=== PATIENT | female | born 1995 | race Caucasian/White ===

== ENCOUNTER → 2018-04-04 11:42 | Outpatient (CLI) | payer MEDICAID, SELFPAY ==
[2018-04-04 17:07] LABS: Chlamydia Trachomatis by PCR Negative (Negative); Neisserai gonorrhoeae by PCR Negative (Negative); Probe Check PASS; Sample Adequacy Control PASS; Specimen Processing Control PASS
[2018-04-07 11:08] LABS: HPV Reflexed? NOT INDICATED
== END ==
PROVIDERS: Visit Provider Obstetrics & Gynecology
DX: Z12.4 Encounter for screening for malignant neoplasm of cervix (principal)
CPT/HCPCS: 87491; 87591; 88175; G0145

== ENCOUNTER 2018-05-04 15:24 | Emergency (ER) | payer MEDICAID, SELFPAY ==
[2018-05-04 15:25] VITALS: BP 144/92; PULSE 109; RESP 17; TEMP 36.7; O2SAT 97; BMI 44.4
--- NOTE | 2018-05-04 15:53 | ED.DEP ---
ED Disposition - Plan for ED Patient: Chief Complaint: Rash Instructions: ED Folliculitis Prescriptions: Clindamycin [Cleocin] 300 mg PO 4X/DAY #80 capsule Referrals: Sujata Ignacio MD [Primary Care Provider] - Nayeli Baig MD [STAFF PHYSICIAN] -
--- NOTE | 2018-05-04 15:57 | ED.VISSUMM ---
- ER Visit Summary Date of Service: 05/04/18 Chief Complaint: Rash History of Present Illness: The patient is a 22 F presenting with rash in her pelvic region. She shaved before this started. She states this has been ongoing for the past 2 weeks. She states that it worsened today after using Segal cream. She has an itchy painful rash. She denies fever. LMP was 4 days ago. Denies possibility of STDs. Denies other complaints. She has an allergy to penicillin. Physical Examination: Vitals are stable. Patient is afebrile. Alert no acute distress. HEENT exam is unremarkable. Lungs are clear and equal bilaterally. Heart is regular rate and rhythm. Abdomen is soft nontender nondistended. : Follicular rash in pelvic area. No vesicles or ulcers. No areas of fluctuance. Extremities are unremarkable. Remainder of exam is unremarkable. Emergency Department Course and Treatment: Patient is given clindamycin. She is advised to follow up with her PHONE TRIAGE SPECIALIST. Advised return to ED for any worsening complaints. Disposition: Discharge home Impression: Folliculitis This note was generated with [employer] dictation software. It may contain incorrect words, spelling, and punctuation that were not noted in review of the chart prior to signing ED Disposition - Plan for ED Patient: Disposition: Home or Assisted Living Chief Complaint: Rash Instructions: ED Folliculitis Prescriptions: RX: Clindamycin [Cleocin] 300 mg PO 4X/DAY #80 capsule Referrals: Sujata Ignacio MD [Primary Care Provider] - Nayeli Baig MD [STAFF PHYSICIAN] -
[2018-05-04] MEDS: Clindamycin HCl 150 MG Capsule 300 MG PO (16:02)
[2018-05-04 16:13] VITALS: RESP 18
== END 2018-05-04 16:18 | disposition home or self-care (01) ==
PROVIDERS: Emergency Provider Emergency Medicine; Family Provider Family Medicine; PCP Family Medicine
DX: L73.9 Follicular disorder, unspecified (principal); Z72.0 Tobacco use
CPT/HCPCS: 99283

== ENCOUNTER 2018-07-01 00:04 | Emergency (ER) | payer MEDICAID, SELFPAY ==
[2018-07-01 00:04] VITALS: BP 168/82; PULSE 129; RESP 16; TEMP 36.7; O2SAT 98; BMI 43.9
--- NOTE | 2018-07-01 00:12 | ED.RN ---
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
[2018-07-01 00:16] VITALS: BP 140/111; PULSE 128; RESP 24; O2SAT 98
[2018-07-01 00:25] VITALS: BP 143/105; PULSE 106; RESP 21; O2SAT 98
--- NOTE | 2018-07-01 00:27 | RAD_ITS ---
STUDY: X-RAY CHEST REASON FOR EXAM: Female, 22 years old. Right-sided chest pain. TECHNIQUE: Frontal and lateral views of the chest. COMPARISON: None. FINDINGS: The lungs are clear and expanded. There is no demonstrated pleural abnormality. Normal size heart. Normal mediastinum and heena. Normal visualized pulmonary arteries. Normal visualized aortic arch and descending thoracic aorta. Normal visualized thoracic spine. Normal visualized ribs, clavicles, and shoulders. There is no demonstrated abnormality of the visualized soft tissue structures of the upper abdomen. RAD/Chest PA and Lateral IMPRESSION: Normal x-ray examination of the chest. Electronically Signed: Michael Pires MD at 2:01 EST , Service support ,
--- NOTE | 2018-07-01 00:29 | ED.VISSUMM ---
- ER Visit Summary Date of Service: 07/01/18 Chief Complaint: Right sIded chest pain History of Present Illness: The patient is a 22 F no significant past medical history. Patient states yesterday gradual onset of intermittent right-sided chest pain. She describes it as sharp. Worse with movement. No shortness of breath. No hemoptysis. No leg pain or swelling. She is never had a DVT or PE. There is no family history of coagulopathy or blood clots. She denies any recent travel, surgery, immobilization. No recent hospitalization. No calf pain or swelling. 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 Physical Examination: Young female no acute distress. Vital signs are stable. She is tachycardic at 120 but states she walked up to the parking lot ramp prior to arrival. Pulse ox 98% on room air no signs of hypoxia. H EENT exam unremarkable. Neck nontender. No JVD. Lungs clear to auscultation bilaterally. Heart regular rhythm rate about 125 no murmur. Chest wall nontender. She does have worse discomfort with movement of her right chest wall. Abdomen is soft and nontender. Normal bowel sounds no peritoneal signs. Remedies moves all 4. Calves nontender without edema or cords. Equal symmetrical radial pulses. Back nontender. Skin normal. Neurologically she is awake and alert with no focal motor deficits. Test Results: EKG shows a sinus tachycardia rate of 132 with no acute signs of IL or ischemia. Chest x-ray AP and lateral views shows no acute abnormality. Read by myself. Emergency Department Course and Treatment: Patient is doing well on repeat exam at 00 55. She was walked by nursing staff and her pulse ox stayed 96% or better. She felt fine and did not have any dyspnea while walking. Treatment Plan: Motrin for pain. Follow-up if not improving or return if feeling worse. Disposition: Discharge Impression: Acute right-sided chest pain of uncertain etiology This note was generated with [employer] dictation software. It may contain incorrect words, spelling, and punctuation that were not noted in review of the chart prior to signing ED Disposition - Plan for ED Patient: Referrals: Sujata Ignacio MD [Primary Care Provider] -
--- NOTE | 2018-07-01 00:33 | ED.DCSUM_ITS ---
- ER Visit Summary Date of Service: 07/01/18 Chief Complaint: Right sIded chest pain History of Present Illness: The patient is a 22 F no significant past medical history. Patient states yesterday gradual onset of intermittent right-sided chest pain. She describes it as sharp. Worse with movement. No shortness of breath. No hemoptysis. No leg pain or swelling. She is never had a DVT or PE. There is no family history of coagulopathy or blood clots. She denies any recent travel, surgery, immobilization. No recent hospitalization. No calf pain or swelling. 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 Physical Examination: Young female no acute distress. Vital signs are stable. She is tachycardic at 120 but states she walked up to the parking lot ramp prior to arrival. Pulse ox 98% on room air no signs of hypoxia. H EENT exam unremarkable. Neck nontender. No JVD. Lungs clear to auscultation bilaterally. Heart regular rhythm rate about 125 no murmur. Chest wall nontender. She does have worse discomfort with movement of her right chest wall. Abdomen is soft and nontender. Normal bowel sounds no peritoneal signs. Remedies moves all 4. Calves nontender without edema or cords. Equal symmetrical radial pulses. Back nontender. Skin normal. Neurologically she is awake and alert with no focal motor deficits. Test Results: EKG shows a sinus tachycardia rate of 132 with no acute signs of MT or ischemia. Chest x-ray AP and lateral views shows no acute abnormality. Read by myself. Emergency Department Course and Treatment: Patient is doing well on repeat exam at 00 55. She was walked by nursing staff and her pulse ox stayed 96% or better. She felt fine and did not have any dyspnea while walking. Treatment Plan: Motrin for pain. Follow-up if not improving or return if feeling worse. Disposition: Discharge Impression: Acute right-sided chest pain of uncertain etiology This note was generated with [employer] dictation software. It may contain incorrect words, spelling, and punctuation that were not noted in review of the chart prior to signing ED Disposition - Plan for ED Patient: Referrals: Sujata Ignacio MD [Primary Care Provider] -
--- NOTE | 2018-07-01 00:55 | EKG12_ITS ---
Test Reason : CP Blood Pressure : / mmHG Vent. Rate : 132 BPM Atrial Rate : 132 BPM P-R Int : 136 ms QRS Dur : 086 ms QT Int : 296 ms P-R-T Axes : 048 031 007 degrees QTc Int : 438 ms Sinus tachycardia Otherwise normal ECG Confirmed by ERLIN BATRES, NEHEMIAH ([id number]), editor [employer] ([id number]) on 07/04/2018 1:35:09 PM Referred By: SHARON Confirmed By:NEHEMIAH KERN MD
--- NOTE | 2018-07-01 00:57 | ED.DEP ---
ED Disposition - Plan for ED Patient: Disposition: Home or Assisted Living Instructions: ED Chest Pain Atypical Unkn Cause Referrals: Sujata Ignacio MD [Primary Care Provider] - 1-2 Days if not improving Additional Instructions: Return if feeling worse, increasing shortness of breath, increasing pain or coughing up blood. Motrin for pain. Follow-up with your primary care physician if not improving.
[2018-07-01 00:58] VITALS: BP 140/98; PULSE 112; RESP 20; O2SAT 96
== END 2018-07-01 01:04 | disposition home or self-care (01) ==
PROVIDERS: Emergency Provider Emergency Medicine; Family Provider Family Medicine; PCP Family Medicine
DX: R07.9 Chest pain, unspecified (principal); Z72.0 Tobacco use
CPT/HCPCS: 71046; 93005; 99282

== ENCOUNTER 2018-10-12 00:47 | Emergency (ER) | payer MEDICAID, SELFPAY ==
[2018-10-12 00:48] VITALS: BP 151/84; PULSE 113; RESP 14; TEMP 36.3; O2SAT 99; BMI 43.8
--- NOTE | 2018-10-12 01:55 | RAD_ITS ---
STUDY: X-RAY CHEST REASON FOR EXAM: Female, 23 years old. Chest pain TECHNIQUE: PA and lateral views of the chest. COMPARISON: 07/01/2018 FINDINGS: The lungs are clear and expanded. There is no demonstrated pleural abnormality. Normal size heart. Normal mediastinum and heena. Normal visualized pulmonary arteries. Normal visualized aortic arch and descending thoracic aorta. Normal visualized thoracic spine. Normal visualized ribs, clavicles, and shoulders. There is no demonstrated abnormality of the visualized soft tissue structures of the upper abdomen. RAD/Chest PA and Lateral IMPRESSION: Normal x-ray examination of the chest. Electronically Signed: Wilner Arce MD at 2:55 EDT Tel , Service support ,
--- NOTE | 2018-10-12 01:58 | ED.DCSUM_ITS ---
- ER Visit Summary Date of Service: 10/12/18 Chief Complaint: Chest pain History of Present Illness: The patient is a 23 F who presents with chest pain. This began about 2 hours before presentation. She complains of sharp substernal chest pain which radiates down across her upper abdomen. This is already improved. She currently rates it as a 3 out of 10. It does wax and wane. She reports nausea without vomiting. No diarrhea. She denies shortness of breath. She has had some chronic cough. No fevers congestion rhinorrhea. She denies recent travel surgery, immobilization, prior DVT or pulmonary embolism, cancer. No diabetes hypertension high cholesterol. Physical Examination: Heart rate 113 vitals otherwise unremarkable Moist mucous membranes Heart regular tachycardia Lungs are clear Abdomen soft nontender nondistended Alert Test Results: EKG shows sinus rhythm at a rate of 103. View chest x-ray shows no acute process, normal. Emergency Department Course and Treatment: Patient refuses any blood work. I did explain and concern for possible intra-abdominal pathology. She vocalized understanding. I explained I cannot rule out pathologies such as pancreatitis or biliary obstruction. She continues to refuse any blood work. EKG shows sinus rhythm at a rate of 103. Two-view chest x-ray is normal. Patient advised to follow-up as an outpatient and does understand return for new or worsening symptoms. Treatment Plan: [] Disposition: Discharge Impression: Chest pain Epigastric abdominal pain This note was generated with [employer] dictation software. It may contain incorrect words, spelling, and punctuation that were not noted in review of the chart prior to signing ED Disposition - Plan for ED Patient: Referrals: Sujata Ignacio MD [Primary Care Provider] -
[2018-10-12 02:01] VITALS: RESP 18
--- NOTE | 2018-10-12 02:30 | EKG12_ITS ---
Test Reason : CP Blood Pressure : / mmHG Vent. Rate : 103 BPM Atrial Rate : 103 BPM P-R Int : 148 ms QRS Dur : 088 ms QT Int : 336 ms P-R-T Axes : 050 047 026 degrees QTc Int : 440 ms Sinus tachycardia Otherwise normal ECG Confirmed by GAMA BTARES, AIMEE ([id number]), international editorial producer [employer] ([id number] on 10/15/2018 4:24:53 PM Referred By: AYLIN Confirmed By:AIMEE MALLOY MD
--- NOTE | 2018-10-12 03:05 | ED.DEP ---
ED Disposition - Plan for ED Patient: Instructions: ED Chest Pain Atypical Unkn Cause, ED Abdominal Pain Unkn Cause Referrals: Sujata Ignacio MD [Primary Care Provider] -
[2018-10-12 03:08] VITALS: BP 115/76; PULSE 90; RESP 14; O2SAT 99
== END 2018-10-12 03:12 | disposition home or self-care (01) ==
PROVIDERS: Emergency Provider Emergency Medicine; Family Provider Family Medicine; PCP Family Medicine
DX: R07.9 Chest pain, unspecified (principal); R10.13 Epigastric pain; Z72.0 Tobacco use
CPT/HCPCS: 71046; 93005; 99282

== ENCOUNTER 2019-09-15 20:23 | Emergency (ER) | payer MEDICAID, SELFPAY ==
[2019-09-15 20:24] VITALS: BP 129/79; PULSE 128; RESP 24; TEMP 37; O2SAT 98; BMI 46.0
--- NOTE | 2019-09-15 20:44 | ED.VIS.GEN ---
History of Present Illness Chief Complaint: Female C/O Informant: Patient Onset: Hours - 1 Timing: Continuous Narrative: Was having intercourse with her significant other tonight, and lost the condom. She fears it may be stuck in her vagina. Asymptomatic. - Past Medical History (1) POLA (generalized anxiety disorder) Status: Chronic Past Medical History - Allergies and Home Meds Allergies/Adverse Reactions: Allergies acetaminophen [From NyQuil] Allergy (Verified 09/15/19 20:24) Hives amoxicillin Allergy (Verified 09/15/19 20:24) Hives dextromethorphan [From NyQuil] Allergy (Verified 09/15/19 20:24) Hives doxylamine [From NyQuil] Allergy (Verified 09/15/19 20:24) Hives Penicillins Allergy (Verified 09/15/19 20:24) Hives pseudoephedrine [From NyQuil] Allergy (Verified 09/15/19 20:24) Hives Primary Care Physician: Sujata Ignacio MD [Primary Care Provider] - Smoking Status: Current every day smoker Review of Systems General: Denies: Chills, Fever, Sweats Gastrointestinal: Denies: Abdominal pain, Nausea, Vomiting, Diarrhea, Melena, Hematochezia Genitourinary: Denies: Dysuria, Hematuria, Frequency Psych: Reports: Anxiety Physical Exam Vital Signs/Narrative: Vital Signs Temp Pulse Resp BP Pulse Ox 09/15/19 20:24 98.6 F 128 H 24 H 129/79 H 98 Inital Vital Signs reviewed: Yes General: Well nourished, Well developed, Obese, No Acute Distress Head: Normocephalic, Atraumatic Respiratory: No distress Abdomen: Soft, Nontender, Nondistended, Normal bowel sounds Neurological: Alert, Oriented x3, Cranial nerves II-XII grossly intact, Normal Strength, Normal Sensation, Normal Gait Psychological: Normal affect, Normal Mood Procedures Procedure(s): Foreign body removal --pelvic exam performed with nurse after verbal consent. 1 intact condom deep within the vaginal vault. It was removed without difficulty. The rest of the vaginal vault and cervix were visualized and unremarkable. No sign of infection. ED Disposition - Plan for ED Patient: Disposition: Home or Assisted Living Diagnosis: Foreign body in vagina Instructions: ED Foreign Body Vaginal Referrals: Sujata Ignacio MD [Primary Care Provider] - As Needed
[2019-09-15 21:05] VITALS: PULSE 110; RESP 20; O2SAT 99
== END 2019-09-15 21:54 | disposition home or self-care (01) ==
LOC: ED 21:50
PROVIDERS: Emergency Provider Emergency Medicine; PCP Family Medicine
DX: T19.2XXA Foreign body in vulva and vagina, initial encounter (principal); F17.200 Nicotine dependence, unspecified, uncomplicated; E66.9 Obesity, unspecified; Y93.9 Activity, unspecified
CPT/HCPCS: 99282

== ENCOUNTER → 2019-10-01 12:11 | Outpatient (CLI) | payer MEDICAID, SELFPAY ==
[2019-09-15 20:24] VITALS: BMI 46.0
[2019-10-01 15:03] LABS: Anion Gap 3 (5-15); BUN 12 mg/dL (7-18); Calcium,Total 9.2 mg/dL (8.5-10.1); Chloride 107 mmol/L (98-107); Cholesterol 155 mg/dL (200); Creatinine, Serum 0.86 mg/dL (0.55-1.02); EST Glomerular Filtration Rate 87 mL/min (>60); Est Glom Filt Rate - Afr Amer 105 mL/min (>60); Glucose 82 mg/dL (74-106); High Density Lipoprotein 32 mg/dL; Potassium 3.9 mmol/L (3.5-5.1); Sodium Level 138 mmol/L (136-145); Triglycerides 103 mg/dL; Very Low Density Lipoprotein 21 mg/dL (5-40)
[2019-10-01 15:04] LABS: Hemoglobin A1c 5.4 % (4.2-6.3)
[2019-10-03 16:19] LABS: V-Zoster IgG (Immunity) 3055 index (Immune >165)
== END ==
PROVIDERS: PCP Family Medicine; Visit Provider Family Medicine
DX: Z00.00 Encounter for general adult medical examination without abnormal findings (principal); Z13.220 Encounter for screening for lipoid disorders; E66.9 Obesity, unspecified
CPT/HCPCS: 36415; 80048; 80061; 83036; 86787

== ENCOUNTER → 2019-11-30 09:52 | Outpatient (CLI) | payer MEDICAID, SELFPAY ==
[2019-12-02 13:50] LABS: hCG Titer Quant., Serum < 1 mIU/mL (1-3)
== END ==
PROVIDERS: PCP Family Medicine; Referring Provider Obstetrics & Gynecology; Visit Provider Obstetrics & Gynecology
DX: N92.6 Irregular menstruation, unspecified (principal)
CPT/HCPCS: 36415; 84144; 84702

== ENCOUNTER → 2019-12-03 13:13 | Outpatient (CLI) | payer MEDICAID, SELFPAY ==
[2019-12-03 16:51] LABS: hCG Titer Quant., Serum 28 mIU/mL (1-3)
== END ==
PROVIDERS: PCP Family Medicine; Visit Provider Obstetrics & Gynecology
DX: Z32.01 Encounter for pregnancy test, result positive (principal)
CPT/HCPCS: 36415; 84702

== ENCOUNTER 2019-12-06 08:43 | Outpatient (RCR) | payer MEDICAID, SELFPAY ==
[2019-12-06 11:02] LABS: hCG Titer Quant., Serum 121 mIU/mL (1-3)
== END 2019-12-27 23:59 ==
LOC: WOBLAB 08:43
PROVIDERS: PCP Family Medicine; Visit Provider Obstetrics & Gynecology
DX: Z32.01 Encounter for pregnancy test, result positive (principal); N92.6 Irregular menstruation, unspecified
CPT/HCPCS: 36415; 84702

== ENCOUNTER → 2019-12-26 13:22 | Outpatient (CLI) | payer MEDICAID, SELFPAY ==
[2019-12-26 15:54] LABS: Chlamydia Trachomatis by PCR Negative (Negative); Neisserai gonorrhoeae by PCR Negative (Negative); Probe Check PASS; Sample Adequacy Control PASS; Specimen Processing Control PASS
== END ==
PROVIDERS: PCP Family Medicine; Visit Provider Obstetrics & Gynecology
DX: Z11.3 Encounter for screening for infections with a predominantly sexual mode of transmission (principal)
CPT/HCPCS: 87491; 87591

== ENCOUNTER → 2020-01-08 09:59 | Outpatient (CLI) | payer MEDICAID, SELFPAY ==
[2020-01-08 11:07] LABS: Color, Urine Yellow (Yellow); Glucose, Dipstick Normal (Normal); Ketone-Dipstick Negative (Negative); Leukocyte Esterase-Dipstick Negative /ul (Negative); Nitrite-Dipstick Negative (Negative); Occult Blood-Urine Negative /ul (Negative); Protein-Dipstick 15 mg/dl (Negative); Urine Bilirubin Dipstick Negative (Negative); Urine Clarity Clear (Clear); Urine Urobilinogen Normal (Normal)
[2020-01-08 11:08] LABS: Absolute Lymphocyte Count 1.64 X10^3/uL (0.83-4.51); Absolute Neutrophil Count 4.7 X10^3/uL (2.0-7.7); Basophil# 0.01 X10^3/uL; Basophil% 0.1 % (0-1); Eosinophil# 0.07 X10^3/uL; Hematocrit 42.2 % (37-47); Hemoglobin 13.9 g/dL (12.0-15.0); Lymphocyte # 1.64 X10^3/ul (4.0); Lymphocyte % 23.4 % (19-41); Mean Corp Hgb Conc 32.9 g/dL (32-36); Mean Corpuscular Hgb 29.6 pg (27.0-32.0); Monocyte# 0.54 X10^3/uL; Monocyte% 7.7 % (0-10); NRBC Flagged by Analyzer 0 % (0-5); Neutrophil # 4.73 X10^3/uL (2.7-7.7); Neutrophil % 67.5 % (47-70); Platelet Count 315 K/mm3 (150-450); RBC Distribution Width SD 42.5 fl (35.1-43.9); Red Blood Count 4.69 M/mm3 (4.2-5.4)
[2020-01-08 11:27] LABS: COTININE Drug Screen Positive (<200 ng/mL)
[2020-01-08 11:29] LABS: Thyroid Stim Hormone (TSH) 1.55 uIU/mL (0.358-3.74)
[2020-01-08 11:43] LABS: Amphetamine Urine VISTA NEGATIVE (<1000 ng/mL); Barbiturate Urine VISTA NEGATIVE (< 200 ng/mL); Benzodiazepine Urine VISTA NEGATIVE (< 200 ng/mL); Cocaine Urine VISTA NEGATIVE (< 300 ng/mL); Ecstacy Urine VISTA NEGATIVE (< 500 ng/mL); Methadone Urine VISTA NEGATIVE (< 300 ng/mL); PCP Urine VISTA NEGATIVE (< 25 ng/mL); THC Urine VISTA NEGATIVE (< 50 ng/mL); Vista UDS pH Range 7
[2020-01-08 12:03] LABS: HIV - WCH Non-Reactive (Nonreactive); Hepatitis B Surface Antigen Non-Reactive (Nonreactive); Hepatitis C Antibody Non-Reactive (Nonreactive); Rubella IgG 32.5 IU/mL
[2020-01-09 11:06] LABS: Prenatal RPR NONREACTIVE (NONREACTIVE)
== END ==
PROVIDERS: PCP Family Medicine; Visit Provider Obstetrics & Gynecology
DX: Z34.81 Encounter for supervision of other normal pregnancy, first trimester (principal)
CPT/HCPCS: 36415; 80307; 81002; 84443; 85025; 86703; 86762; 86803; 87340

== ENCOUNTER → 2020-04-02 16:45 | Outpatient (CLI) | payer MEDICAID, SELFPAY | PROVIDERS: PCP Family Medicine; Visit Provider Obstetrics & Gynecology | DX: Z34.82 Encounter for supervision of other normal pregnancy, second trimester (principal); N39.0 Urinary tract infection, site not specified | CPT/HCPCS: 87086 ==

== ENCOUNTER → 2020-05-25 16:24 | Outpatient (CLI) | payer MEDICAID, SELFPAY ==
[2020-05-25 17:48] LABS: Hematocrit 37.7 % (37-47); Hemoglobin 12.1 g/dL (12.0-15.0); Mean Corp Hgb Conc 32.1 g/dL (32-36); Mean Corpuscular Hgb 29.9 pg (27.0-32.0); Mean Corpuscular Volume 93.1 fL (81-99); Mean Platelet Vol. 10.7 fl (6.2-12.0); Platelet Count 297 K/mm3 (150-450); RBC Distribution Width CV 13.1 % (11.6-14.6); RBC Distribution Width SD 44.3 fl (35.1-43.9); Red Blood Count 4.05 M/mm3 (4.2-5.4); White Blood Count 7.9 K/mm3 (4.4-11.0)
[2020-05-25 17:54] LABS: Glucose Challenge Gest 1H 50g 77 mg/dL (70-140)
== END ==
PROVIDERS: PCP Family Medicine; Visit Provider Obstetrics & Gynecology
DX: Z34.83 Encounter for supervision of other normal pregnancy, third trimester (principal)
CPT/HCPCS: 36415; 82950; 85027

== ENCOUNTER → 2020-08-03 16:44 | Outpatient (CLI) | payer MEDICAID, SELFPAY | PROVIDERS: PCP Family Medicine; Visit Provider Obstetrics & Gynecology | DX: Z03.818 Encounter for observation for suspected exposure to other biological agents ruled out (principal) | CPT/HCPCS: 87635; C9803; U0002 ==

== ENCOUNTER 2020-08-12 05:00 | Inpatient (IN) | payer MEDICAID, SELFPAY ==
--- NOTE | 2020-08-11 20:57 | PCM.HP.BLA ---
History and Physical Date of Admission: 08/12/20 OG ANTEPARTUM RECORD - HISTORY AND PHYSICAL (08/11/2020) Name: MARY CHRISTIE History of this : This is a 24 year old [id number] presents at 39 wks + 4 days gestation for repeat . OB Physician: Francisco [facility] MD [facility]'s Physician: Sujata Ignacio M.D. ...................................................................... : 1995 Age: 24 Address: [address] [place] [address] Phone: H) [phone] Insurance Carrier: [employer] CLAIMS DEPT [id number] Emergency Contact: HUONG CHRISTIE [phone] ...................................................................... Final RUBEN: 08/15/20 By Ultrasound: 8 weeks 4 days PARITY: (G-Total Pregnancies P-Fullterm,Premature,Induced AB,Spont AB, Ectopics, Multiple,Living) RUBEN CONFIRMATION: By LMP: 11/09/19 Final RUBEN: 08/15/20 OB PROBLEM LIST: AFP/CF/SMA screening declined. ALLERGIC TO AMMOXICILLIN, NYQUIL Bipolar disorder, depreession, anxiety - currently taking Prozac. EPDS on 01/08/2020 = 1830. Hx of IBS Hx of UTI's New FOB (he has two children from previous relationships) Obesity Prior CS, Plan repeat Smoker, down to 2 cigs per day, ATQ Undecided about feeding method ALLERGIES: Amoxicillin Rash NyQuil Hives and/or rash MEDICATIONS: azithromycin 250 mg tablet take 2 tabs po first day and then 1 po daily x4 days Macrobid 100 mg capsule One pill by mouth twice a day Gummy 400 mcg-35 mg-25 mg-5 mg chewable tablet Two pills by mouth once a day Prozac 20 mg capsule With a 10 mg for total of 30 mg daily Senna with Docusate Sodium 8.6 mg-50 mg tablet Take one tablet every twelve hours as needed Zofran 4 mg tablet Take 1 to 2 tablets every 6 hours as needed SOCIAL HISTORY: Smoking - 2-3 per day, ATQ Alcohol Use - denies drinking Diet - caffeine > 2 drinks per day and needs improvement Lifestyle - moderate stress lifestyle Exercise - regular Employer - Student in [employer] in Job Description - Student Illicit Drug Use - denies use of street drugs Sexual Activity - numerous sexual partners- new partner x 1 year Residence - Lives with [facility] Place of - [place], [place] Spouse-Sig Other Name - [facility] -- Galindo Leong Spouse-Sig Other Occupation - Greenskeeper Spouse-Sig Other Phone No - [phone] Children Name(s) - Auriella 16' PRIOR DELIVERY HISTORY DEL DATE GEST LAB WT LB WT OZ TYPE ANES LABOR TX 20 Oct 16 38 18 6 3 C-Sec Epidural No ANTEPARTUM FLOW CHART VISIT GE RTC FU F F WA U U DATE WK MD WKS HT PN HR M SS BP ED WT WA GL D EF ST __ ____ ___ __ __ ___ __ __ __ ___ __ __ __ ___ __ 08 Jul 38 JMW 3 40 + + 112/72 2+ 306 tr - 03 Jul JMW 1 39 V + + 118/70 1+ 304 - - ft 50 -1 Jun 36 JMW 1 37 + + 136/84 sl 306 tr - 17 Jun 35 JMW 1 35 + + 112/70 1+ 301 tr ne Jun 34 JMW 2 34 V + + 124/86 sl 297 tr ne ft 50 -2 Jun 28 JMW 3 31 + + 120/70 sl 297 tr - 28 May 25 JMW 3 28 + + 108/80 0 291 - - Apr 21 JMW 4 24 + + 112/70 0 293 tr - 05 Apr 17 JMW 4 20 + + 90/60 0 286 tr - Mar 14 JMW 3 17 + 98/70 0 290 tr - 11 Feb 07 CH 4 + O 110/82 0 292 Jan 03 JMW 4 U+ US 118/78 0 300 tr - ANTEPARTUM NOTE(S): Aug 03 2020: ctx's Jul 29 2020: GBS Today,Round Ligament/Hip Pain Jul 22 2020: LARC form signed, Good FM Jul 15 2020: diarrhea today Jul 08 2020: US today, Good FM, crampiness; urine 2+ bacteria Jun 16 2020: Good FM,Feeling Well May 25 2020: 28 week labs drawn Apr 27 2020: Glucola/Instructions Given, Good FM Apr 02 2020: see note, US OK Mar 12 2020: getting over sinus infection Feb 07 2020: Increased N/V Jan 08 2020: Sono Today, Forms filled out for TH NOB COMPREHENSIVE ANTEPARTUM NOTE(S): Aug 03 2020: Mary is here for her PNV. Good FM. 2+ edema in ankles. No concerns expressed today. Occasional ctx's. Preop consents reviewed and signed. Covid test ordered. MK Jul 15 2020: Mary is here with SO for PNV. Very restless and uncomfortable. No ctx. Having good FM. Slight edema noted in lower legs and feet. Having some issues with diarrhea today. Urine dipped tr/neg. Became engaged on . LSS Jul 08 2020: Mary is here for PNV following US. Was in [facility] on Monday07-06-20 for cramping and lower back pain. They did an exam and she was not dialated and that she was having BH CTX. Urinalysis completed. Currently moaning and restless with same c/o pain and discomfort. Having nausea and decreased appetite. . Good FM. Slight swelling in lower legs and feet. .Urine dipped tr and neg. LSS May 25 2020: Mary is here for a PNV. Good FM. No edema. Complains of N/V, has not taken Prozac as she does not want to be constipated. 28 week labs drawn today. MK Apr 02 2020: Mary is being seen for PNV. Pt is 20 weeks and 5 days. She states that IC a couple days ago was painful and has pelvic pressure. She states prior to that she had not had IC for 3 weeks. She was painful from vagina up to csection scar. Pt has same sexual partner. Long dip shows trs protein, 6.0 pH, 1020 specific gravity and all others are negative. AM Feb 07 2020: Mary is here for a PNV with FOB. Complains of increased nausea and vomiting since coming in. Can only keep down crackers, lettuce and water. Advised pt to push fluids. Pt expressed concerns about using a medication for nausea as they make her constipated. Informed she could discuss different medications for nausea and possibly a stool softener to take alongside it with Livier. She continues to t Feb 07 2020: (f,?*) FHR today 148-155, sounds anterior. Reports N/V is worse, but is able to keep water down without any issues as well as any food that is healthy like salads. States Chipotle always sits well, as well as carbs, but greasy fried food doesn't. Reviewed that this is all standard and to continue to eat small amounts throughout the day and keep water intake up. Does not have money to buy any Jan 09 2020: TELEHEALTH NOB VISIT. Mary is a 24 yr old with an RUBEN of 08/15/2020, current GA is 8 w 5 d. She resides with her 4 year old daughter, and new FOB/SO of one year, Galindo Leong. Galindo has two young children from two previous relationships. Mray states that he is supportive. Mary will be starting [employer] classes later this month. She had a at [facility] with her daughter, for CPD, and FTP pa REVIEW OF SYSTEMS: GENERAL - Denies fever, or chills SKIN - Denies rash, new skin lesions, or change in moles EYES - Denies blurred vision, or change in visual acuity EARS - Denies ear pain, or difficulty hearing NOSE - Denies nasal congestion, discharge, or bleeding MOUTH - Denies sore throat, or difficulty swallowing NECK - Denies pain or swelling RESPIRATORY - Denies shortness of breath, cough, wheezing CARDIOVASCULAR - Denies palpitations, chest pain, orthopnea, PND, peripheral edema, syncope or claudication GASTROINTESTINAL - Denies nausea, vomiting, diarrhea, constipation, Denies abdominal pain, melena and or bright red blood GENITOURINARY - Denies dysuria, frequency of urination, urgency, or hesitancy MUSCULOSKELETAL - Denies joint or muscle pain, or back pain NEUROLOGICAL - Denies localized numbness, weakness, or tingling PSYCHIATRIC - Denies depression, anxiety, substance abuse or suicide attempts ENDOCRINE - Denies heat or cold intolerance, weight loss or gain, increasing thirst HEMATO-IMMUNOLOGIC - Denies easy bruising, bleeding, oral ulcerations or recurrent infections GENETICS SCREENING: Age 35+ years: No Thalassemia: No Neural Tube Defect: No Down Syndrome: No JU-SACHS: No Sickle Cell Disease: No Hemophilia: No Musc. Dystrophy: No Cystic Fibrosis: No-declines screening [place] Chorea: No Mental Retardation: No Fragile X: No Other genetic: No Other defects: No SABs/still births: No Drugs since LMP: Yes INFECTION HISTORY: High risk AIDS: No High risk Hepatitis: No Exposed to TB: No Exposed to Herpes: No Rash/viral illness since LMP: No History of STD: No MENSTRUAL HISTORY: *Menses Amount/Duration: 5 daysMenses Regularity: IrregularFrequency: variableMenarche (Age Onset): 13* PAST SUMMARY: PARITY: 1. Total Pregnancies............ 2 2. Full Term Pregnancies........ 1 3. Premature.................... 0 4. Abortions - Induced.......... 0 5. Abortions - Spontaneous...... 0 6. Ectopics..................... 0 7. Multiple Births.............. 0 8. Living Children.............. 1 PAST #1: Date of :.................. 11/16/15 Gestation Weeks:................ 38 Length of labor(hours):......... 18 Sex:............................ F Weight-lbs:............... 6 Weight-oz:................ 3 Type of Delivery:............... C-Sect Type of Anesthesia:............. Epidural Place of Delivery:.............. [facility] Treatment of Labor?:.... No Comment: CPD PHYSICAL EXAMINATION General Appearence: 24 yo female in no acute distress Vital Signs: AF, VSS Heart: RRR without rubs or gallops Lungs: CTA x 2 Breasts: deferred Abdomen: gravid Pelvis: Cervix: Presentation: cephalic Station: Fetus: Size: AGA Movement: present Heart: present LAB TEST(S) ORDERED SINCE:11/19/19 05/25/2020 GLUCOSE CHALLENGE GEST 1H 50G 05/25/2020 CBC-COMPLETE BLOOD CNT NO DIFF 04/05/2020 CULTURE, URINE 01/09/2020 RPR 01/08/2020 URINE DRUG SCREEN (VISTA) 01/08/2020 URINALYSIS, ROUTINE (DIPSTICK) 01/08/2020 THYROID STIM HORMONE (TSH) 01/08/2020 RUBELLA IGG 01/08/2020 T AND S-NO CHARGE W/PNP 01/08/2020 NICOTINE URINE DRUG SCREEN 01/08/2020 HIV - WC 01/08/2020 HEPATITIS C ANTIBODY 01/08/2020 HEPATITIS B SURFACE ANTIGEN 01/08/2020 CBC W/DIFF, AUTOMATED 12/26/2019 CT/NG [facility] BY PCR 12/06/2019 HCG TITER QUANT., SERUM 12/03/2019 HCG TITER QUANT., SERUM 12/02/2019 PROGESTERONE LEVEL 12/02/2019 HCG TITER QUANT., SERUM 08/03/2020 COVID 19, BOO [facility](RT COLLECT) == ==== Order Observation Description Value Ref_Range A* Site == ==== COVID 19, BOO NOTE DONOHUE COVID 19, BOO COVID-19,BOO Not Detected Not Detect ML Normal Reference Range: Not Detected Method:(RT-PCR) real-time reverse transcriptase PCR [employer] Instrument *The Food and Drug Administration (FDA) has issued an Emergency Use Authorization (EAU) for the [employer] SARS-CoV-2 Assay for the rapid detection of the virus that causes COVID-19. This test has been validated, but the FDAs independent review of this validation is pending. *Negative results do not preclude infection and should not be used as the sole basis for treatment or patient management. Optimum specimen types and timing for peak viral levels during infections caused by SARS-CoV-2 have not been determined. Collection of multiple specimens from the same patient may be necessary to detect the virus. The possibility of a false negative result should be considered if the patient has clinical presentation or has had recent exposure. GLUCOSE CHALLEN NOTE [facility] GLUCOSE CHALLEN GLU GEST 50G 1H 77 mg/dL 70-140 ML CBC-COMPLETE BL NOTE DONOHUE CBC-COMPLETE BL WBC 7.9 K/mm3 4.4-11.0 ML CBC-COMPLETE BL RBC 4.05 M/mm3 4.2-5.4 L ML CBC-COMPLETE BL HGB 12.1 g/dL 12.0-15.0 ML CBC-COMPLETE BL HCT 37.7 % 37-47 ML CBC-COMPLETE BL MCV 93.1 fL 81-99 ML CBC-COMPLETE BL MCH 29.9 pg 27.0-32.0 ML CBC-COMPLETE BL MCHC 32.1 g/dL 32-36 ML CBC-COMPLETE BL RDW CV 13.1 % 11.6-14.6 ML CBC-COMPLETE BL RDW SD 44.3 fl 35.1-43.9 H ML CBC-COMPLETE BL PLT 297 K/mm3 150-450 ML CBC-COMPLETE BL MPV 10.7 fl 6.2-12.0 ML CULTURE, URINE NOTE DONOHUE RPR NOTE [facility] RPR RPR NONREACTIVE NONREACTIVE ML Reason for Type AND Screen/Red Cells: Surgery? [facility]~[address] [place], [address]~ T AND BLOOD TYPE GEL A POSITIVE N ML T AND AB SCREEN GEL NEGATIVE N ML HEPATITIS C ANT NOTE [facility] HEPATITIS C ANT HEPATITIS C AB Non-Reactive Nonreactive ML Non Reactive: < 0.8 Equivocal: >/= 0.8 to < 1.0 Reactive: >/= 1.0 The CDC recommends that a reactive/equivocal HCV antibody result be followed up by the HCV Nucleic Acid Amplification test (089323) HEPATITIS B DARYL NOTE [facility]UE HEPATITIS B DARYL HEPB SURFACE AG Non-Reactive Nonreactive ML HIV - WCH NOTE [facility]OHUE HIV - WCH HIV - [facility] Non-Reactive Nonreactive ML RUBELLA IGG NOTE DONOHUE RUBELLA IGG RUBELLA IGG 32.5 IU/mL ML Antibody results Interpretation of Immune Status < 5 IU/ml Presumed Non-immune 5 - < 10 IU/ml Equivocal > or = 10 IU/ml Presumed Immune NICOTINE URINE NOTE [facility] NICOTINE URINE TO BE CONFIRMED ML CONFIRMATORY TESTING FOR ALL POSITIVE URINE DRUG SCREEN RESULTS WILL ONLY BE SENT OUT UPON PHYSICIAN ORDER. The results of Urine Drug Screen methods provide only preliminary analytical test results. A more specific alternate chemical method must be used in order to obtain a confirmed analytical result. Gas chromatography/mass spectrometery (GC/MS) is the preferred confirmatory method. Clinical consideration and professional judgement should be applied to any drug of abuse test result, particularly when preliminary positive results are used. NICOTINE URINE COT DRG SCREEN Positive <200 ng/mL H ML Cotinine is the first-stage metabolite of Nicotine. URINE DRUG SCRE NOTE [facility]UE URINE DRUG SCRE TO BE CONFIRMED ML CONFIRMATORY TESTING FOR ALL POSITIVE URINE DRUG SCREEN RESULTS WILL ONLY BE SENT OUT UPON PHYSICIAN ORDER. VISTA Urine Drug Screen methods provide only preliminary analytical test results. A more specific alternate chemical method must be used in order to obtain a confirmed analytical result. Gas chromatography/mass spectrometery (GC/MS) is the preferred confirmatory method. Clinical consideration and professional judgement should be applied to any drug of abuse test result, particularly when preliminary positive results are used. URINE TCA TESTING MUST BE ORDERED SEPARATELY. USE TEST MNEMONIC: UTCA URINE DRUG SCRE VISTA UDS PH 7 ML URINE DRUG SCRE AMPHETAMINES NEGATIVE <1000 ng/mL ML URINE DRUG SCRE BARBITIURATES NEGATIVE < 200 ng/mL ML URINE DRUG SCRE BENZODIAZIPINE NEGATIVE < 200 ng/mL ML URINE DRUG SCRE COCAINE NEGATIVE < 300 ng/mL ML URINE DRUG SCRE ECSTACY NEGATIVE < 500 ng/mL ML URINE DRUG SCRE METHADONE NEGATIVE < 300 ng/mL ML URINE DRUG SCRE OPIATES NEGATIVE < 300 ng/mL ML URINE DRUG SCRE PCP NEGATIVE < 25 ng/mL ML URINE DRUG SCRE THC NEGATIVE < 50 ng/mL ML URINALYSIS, ROU NOTE [facility]UE URINALYSIS, ROU COLOR Yellow Yellow ML URINALYSIS, ROU CLARITY Clear Clear ML URINALYSIS, ROU GLUCOSE, UR Normal mg/dl Normal ML URINALYSIS, ROU BILIRUBIN URINE Negative mg/dL Negative ML URINALYSIS, ROU KETONE UR Negative mg/dl Negative ML URINALYSIS, ROU SP.GR. DIPSTX 1.020 1.002-1.030 ML URINALYSIS, ROU PH UR 5.0 5.0 - 8.0 ML URINALYSIS, ROU PROT DIPSTX 15 mg/dl Negative H ML URINALYSIS, ROU UROBILI Normal mg/dl Normal ML URINALYSIS, ROU NITRITE UR Negative Negative ML URINALYSIS, ROU OCCULT BLOOD-UR Negative /ul Negative ML URINALYSIS, ROU LEUK ESTERASE Negative /ul Negative ML THYROID STIM HO NOTE [facility]UE THYROID STIM HO TSH 1.55 uIU/mL 0.358-3.74 ML CBC W/DIFF, AUT NOTE DONOHUE CBC W/DIFF, AUT WBC 7.0 K/mm3 4.4-11.0 ML CBC W/DIFF, AUT RBC 4.69 M/mm3 4.2-5.4 ML CBC W/DIFF, AUT HGB 13.9 g/dL 12.0-15.0 ML CBC W/DIFF, AUT HCT 42.2 % 37-47 ML CBC W/DIFF, AUT MCV 90.0 fL 81-99 ML CBC W/DIFF, AUT MCH 29.6 pg 27.0-32.0 ML CBC W/DIFF, AUT MCHC 32.9 g/dL 32-36 ML CBC W/DIFF, AUT RDW CV 13.0 % 11.6-14.6 ML CBC W/DIFF, AUT RDW SD 42.5 fl 35.1-43.9 ML CBC W/DIFF, AUT PLT 315 K/mm3 150-450 ML CBC W/DIFF, AUT MPV 11.0 fl 6.2-12.0 ML CBC W/DIFF, AUT NEUT% 67.5 % 47-70 ML CBC W/DIFF, AUT LY% 23.4 % 19-41 ML CBC W/DIFF, AUT MONO% 7.7 % 0-10 ML CBC W/DIFF, AUT EO% 1.0 % 0-5 ML CBC W/DIFF, AUT BASO% 0.1 % 0-1 ML CBC W/DIFF, AUT IM GRAN % 0.300 % 0.0-0.9 ML IG% - Immature Granulocytes (promyelocytes, myelocytes and metamyelocytes) > 1% indicates that a LEFT SHIFT is Present. CBC W/DIFF, AUT ABSOLUTE NEUT 4.7 X10 3/uL 2.0-7.7 ML CBC W/DIFF, AUT ABSOLUTE LYMPH 1.64 X10 3/uL 0.83-4.51 ML CBC W/DIFF, AUT NRBC, FLAGGED 0 % 0-[address]/NG [facility] BY PC NOTE DONOHUE CT/NG [facility] BY PC CHLAM TRAC PCR Negative Negative ML CT/NG [facility] BY PC NG BY PCR Negative Negative ML HCG TITER QUANT NOTE DONOHUE HCG TITER QUANT HCG QUANT. 121 mIU/mL 1-3 H ML hCG levels with Gestational Age Gestational Age hCG mIU/mL (IU/L) 0.2 - 1 week 5 - 50 1-2 weeks 50 - 500 2-3 weeks 100 - 5000 3-4 weeks 500 - 58469 4-5 weeks 1000 - 34640 5-6 weeks 96305 - 100,000 6-8 weeks 00423 - 200,000 2-3 months 94672 - 100,000 HCG TITER QUANT NOTE DONOHUE HCG TITER QUANT HCG QUANT. 28 mIU/mL 1-3 H ML hCG levels with Gestational Age Gestational Age hCG mIU/mL (IU/L) 0.2 - 1 week 5 - 50 1-2 weeks 50 - 500 2-3 weeks 100 - 5000 3-4 weeks 500 - 22525 4-5 weeks 1000 - 92440 5-6 weeks 26734 - 100,000 6-8 weeks 57437 - 200,000 2-3 months 39442 - 100,000 HCG TITER QUANT NOTE DONOHUE HCG TITER QUANT HCG QUANT. < 1 mIU/mL 1-3 ML hCG levels with Gestational Age Gestational Age hCG mIU/mL (IU/L) 0.2 - 1 week 5 - 50 1-2 weeks 50 - 500 2-3 weeks 100 - 5000 3-4 weeks 500 - 03879 4-5 weeks 1000 - 36269 5-6 weeks 60737 - 100,000 6-8 weeks 36219 - 200,000 2-3 months 59940 - 100,000 PROGESTERONE LE NOTE [facility] PROGESTERONE LE PROGESTERONE 10.70 ng/mL See Comment ML Progesterone Reference Table: UNITS Female: Follicular 0.15 - 1.40 ng/mL Luteal 3.34 - 25.56 ng/mL Mid-luteal 4.44 - 28.03 ng/mL Postmenopausal 0.0 - 0.73 ng/mL : 1st Trimester 11.22 - 90.00 ng/mL 2nd Trimester 25.55 - 89.40 ng/mL 3rd Trimester 48.40 -422.50 ng/mL Urine Culture Culture exhibits no growth. == ==== Impression /Plan: 39 wks + 4 days intrauterine for repeat . Preparations in progress for delivery.
[2020-08-12] VITALS (20 sets, daily range): BP systolic 91–132; BP diastolic 46–76; PULSE 62–119; RESP 15–20; TEMP 36.3–36.9; O2SAT 96–100; BMI 48.3
[2020-08-12] MEDS: Lactated Ringers 1,000 ML 999 ML IV (05:20)
[2020-08-12 05:35] LABS: Absolute Lymphocyte Count 2.05 X10^3/uL (0.83-4.51); Absolute Neutrophil Count 7.4 X10^3/uL (2.0-7.7); Basophil# 0.01 X10^3/uL; Basophil% 0.1 % (0-1); Eosinophil# 0.04 X10^3/uL; Eosinophils% 0.4 % (0-5); Hematocrit 35.8 % (37-47); Hemoglobin 11.8 g/dL (12.0-15.0); Lymphocyte # 2.05 X10^3/ul (4.0); Lymphocyte % 20.4 % (19-41); Mean Corpuscular Hgb 29.9 pg (27.0-32.0); Mean Corpuscular Volume 90.9 fL (81-99); Mean Platelet Vol. 10.6 fl (6.2-12.0); Monocyte# 0.57 X10^3/uL; Monocyte% 5.7 % (0-10); NRBC Flagged by Analyzer 0 % (0-5); Neutrophil # 7.35 X10^3/uL (2.7-7.7); Neutrophil % 72.9 % (47-70); Platelet Count 270 K/mm3 (150-450); RBC Distribution Width CV 13.2 % (11.6-14.6); RBC Distribution Width SD 43.8 fl (35.1-43.9); Red Blood Count 3.94 M/mm3 (4.2-5.4); White Blood Count 10.1 K/mm3 (4.4-11.0)
[2020-08-12] MEDS: Acetaminophen 500 MG Tablet 1000 MG PO ×4 (05:58→23:27)
[2020-08-12] MEDS: Lactated Ringers 1,000 ML 150 ML IV (06:21)
[2020-08-12] MEDS: Sodium Citrate/Citric Acid 30 ML UDC PO (07:12)
[2020-08-12] MEDS: Cefazolin 2 GM in 0.9% Normal Saline 100 ML IV (07:30)
--- NOTE | 2020-08-12 07:33 | PCM.OPRPT ---
Delivery Classification: Scheduled Final RUBEN: 08/15/20 Final RUBEN Source: US <20 weeks Gestational age: 39 Weeks and 4 Days ekg/ecg technician: Chio Landrum Type of Anesthesia:: Spinal - With Duramorph Date of Procedure: 08/12/20 Pre-Operative Diagnosis: Prior Section Post-Operative Diagnosis: Prior Section Description of Procedure: Surgeon: Francisco [facility] MD, FACOG Anesthesia: Chhaya Cid MD Procedure: Repeat Low Transverse Cervical Caesarean Section Findings: Viable male infant with Apgars of 8/9 in occiput anterior presentation with clear amniotic fluid and normal three-vessel placenta. Indication: This is a 24-year-old who presents for her second at 39+ weeks gestation. care has otherwise been uneventful. The patient has been counseled regarding the risk and indications of this procedure including the possibility of bleeding infection and injury to surrounding structures such as bowel bladder. All questions were answered. Procedure: Patient was taken to the operating room where after spinal anesthesia was placed, the patient was prepped and draped in usual sterile fashion and a Gotti catheter was placed. The abdomen was entered through the patient's prior Pfannenstiel incision and peritoneum was entered bluntly. After developing a bladder flap on the lower uterine segment a low transverse incision was made on the uterus and head was easily delivered onto the operative field the nose mouth and oropharynx were bulb suctioned. Subsequently a viable male infant was born with Apgars of 8/9. The infant was noted to cry move all extremities vigorously on the operative field. The umbilical cord was doubly clamped and ligated and handed to the nursery personnel who were present for the delivery. Placenta was delivered and noted to be 3 vessels and normal. Uterus was exteriorized and remaining placental tissue was removed. The uterus was then closed in 2 layers first with running locked 0 Vicryl suture followed by a second imbricating layer with 0 Vicryl suture. 0 Vicryl suture was then used in a horizontal mattress interrupted fashion to affect final hemostasis of the uterine incision line. Normal fallopian tubes and ovaries were visualized and the uterus was returned to the pelvis. Hemostasis was noted and rectus abdominis muscles were reapproximated in the midline with interrupted Number 0 Vicryl suture in a horizontal mattress fashion. Fascia was closed with running Number 1 PDS Strata fix suture. Subcutaneous tissue was irrigated with copious amouts of saline solution and then closed with running 3-0 Vicryl suture. Skin was closed with 4-0 monocryl suture in a running subcuticular fashion. Steri strips and a Mepilex dressing were placed across the incision. The patient tolerated the procedure well and was taken to the recovery room in satisfactory condition. Sponge, needle, and instrument counts were all reportedly correct. EBL was 500 cc. Ancef 2 gms IV was given prior to the procedure. Spicemen to Pathology: None Complications: None Amniotic Fluid Description: Clear Placenta Disposition: [facility] Drain: Gotti to straight drain Fluids Replaced: Crystalloid Cord Entanglement: None Esitmated Blood Loss (ml): 500 cc Infant Gender: Male (1 minute): 8 (5 minute): 9 Antibiotic Given: Ancef 2 grams IV x1 Pt instructed on risks of surgery: Bleeding, Infection, Injury to surrounding structure(s) including bowel and bladder Complications: None - Admit VTE Documentation VTE Present on Admission: Yes VTE Mechan Device Prophylaxis: SCD's VTE Pharm Prophylaxis ordered?: Yes
--- NOTE | 2020-08-12 07:35 | DCINST_ITS ---
<Francisco Mason - Last Filed: 08/12/20 07:35> Discharge Diet: No Restrictions Discharge Activity: May not drive while taking narcotic pain medications., May Shower, May Take a Tub Bath May resume sexual activity in: 4-6 weeks Lifting Restrictions: 20 pounds Additional Activity Instructions:: Nothing in the vagina for 4-6 weeks. You may return to work/school in 6 weeks. Call your doctor if your incision/area has: Continuous Slow Oozing, Sudden Increased Bleeding, Increased Pain/ Swelling, Increased Redness, Foul Smelling Discharge Call your doctor if you observe: Fever of 101 or Higher, Inability to urinate, Inability to have a bowel movement, Using more than one pad per hour Additional Instructions: If you experience any of the following, contact your healthcare provider. * Bleeding that soaks a pad every hour for 2 hours * Fever 100.4 or higher * Unrelieved incision or abdominal pain * Swelling, redness, discharge or bleeding from your incision or episiotomy site * Your incision begins to separate * Problems urinating (including inability to urinate or burning while urinating). * Visual changes * Severe headache * Flu-like symptoms * Pain or redness in one of both of your breasts * Pain, warmth, tenderness or swelling in your legs, especially the calf area * Frequent nausea and vomiting * Symptoms of depression or anxiety If you experience any of the following, call 911 or go to the nearest Emergency Room. * Chest pain * Problems breathing * Seizure activity * Partial or complete paralysis of a body part, slurred speech, weakness or drooping of the face, or a sudden inability to walk or hold your balance Allergies/Adverse Reactions: Allergies acetaminophen [From NyQuil] Allergy (Verified 08/12/20 05:27) Hives amoxicillin Allergy (Verified 08/12/20 05:27) Hives dextromethorphan [From NyQuil] Allergy (Verified 08/12/20 05:27) Hives doxylamine [From NyQuil] Allergy (Verified 08/12/20 05:27) Hives Penicillins Allergy (Verified 08/12/20 05:27) Hives pseudoephedrine [From NyQuil] Allergy (Verified 08/12/20 05:27) Hives Medications to take at Discharge Clindamycin HCl 300 mg PO BID 08/12/20 Docusate Sodium [Colace] 100 mg PO BID PRN PRN #60 capsule 08/12/20 Oxycodone [Oxyir] 5 mg PO Q6H PRN PRN 7 Days #14 tablet 08/12/20 The following prescriptions were given: Docusate Sodium [Colace] 100 mg PO BID PRN PRN #60 capsule PRN Reason: Constipation [facility] [address] Oxycodone [Oxyir] 5 mg PO Q6H PRN PRN 7 Days #14 tablet PRN Reason: Pain Score 6-10 Transmission Status: Received by [address] Follow-Up: Call to make an appointment with your doctor for an incision check in 1-2 weeks. You will also need a 6 week post- follow up appointment. Test results from this visit will be discussed in further detail at your follow- up appointment, if applicable. Please Follow Up With: Francisco Mason MD - [phone] When: Call to make an appointment for an incision check in 2 weeks. Primary Care Physician: Care Physician,No Primary [Primary Care Provider] - <Óscar Bradford - Last Filed: 08/14/20 06:12> Additional Instructions: If you experience any of the following, contact your healthcare provider. * Bleeding that soaks a pad every hour for 2 hours * Fever 100.4 or higher * Unrelieved incision or abdominal pain * Swelling, redness, discharge or bleeding from your incision or episiotomy site * Your incision begins to separate * Problems urinating (including inability to urinate or burning while urinating). * Visual changes * Severe headache * Flu-like symptoms * Pain or redness in one of both of your breasts * Pain, warmth, tenderness or swelling in your legs, especially the calf area * Frequent nausea and vomiting * Symptoms of depression or anxiety If you experience any of the following, call 911 or go to the nearest Emergency Room. * Chest pain * Problems breathing * Seizure activity * Partial or complete paralysis of a body part, slurred speech, weakness or drooping of the face, or a sudden inability to walk or hold your balance Follow-Up: Call to make an appointment with your doctor for an incision check in 1-2 weeks. You will also need a 6 week post- follow up appointment. Test results from this visit will be discussed in further detail at your follow- up appointment, if applicable.
[2020-08-12] MEDS: Oxytocin 30 units/NS 500 ml 30 UNITS/500 ML IV.SOLN 167 UNITS IV (09:00)
[2020-08-12] MEDS: Ketorolac 30 MG/ML Syringe IV ×3 (09:34→21:46)
[2020-08-12] MEDS: DiphenhydrAMINE 25 MG Capsule PO (11:09)
[2020-08-12] MEDS: Lactated Ringers 1,000 ML 100 ML IV ×2 (12:04→21:55)
[2020-08-12] MEDS: FLUoxetine 20 MG Capsule PO (14:01)
[2020-08-12] MEDS: Cefazolin 1 GM/50 ML BAG IV ×2 (15:34→22:50)
[2020-08-12] MEDS: Enoxaparin 40 MG/0.4 ML Syringe SC (20:10)
[2020-08-12] MEDS: 0.9% Saline Lock 10 ML Syringe IV ×2 (21:47→23:27)
[2020-08-13] VITALS (9 sets, daily range): BP systolic 100–137; BP diastolic 56–78; PULSE 89–127; RESP 16–18; TEMP 36.1–36.9; O2SAT 94–98
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
[2020-08-13] MEDS: 0.9% Saline Lock 10 ML Syringe IV ×2 (04:07→15:46)
[2020-08-13] MEDS: Ketorolac 30 MG/ML Syringe IV (04:07)
[2020-08-13 04:21] LABS: Hematocrit 34.9 % (37-47); Hemoglobin 11.2 g/dL (12.0-15.0); Mean Corp Hgb Conc 32.1 g/dL (32-36); Mean Corpuscular Hgb 29.6 pg (27.0-32.0); Mean Corpuscular Volume 92.3 fL (81-99); Mean Platelet Vol. 10.6 fl (6.2-12.0); Platelet Count 213 K/mm3 (150-450); RBC Distribution Width CV 13.5 % (11.6-14.6); RBC Distribution Width SD 45.1 fl (35.1-43.9); Red Blood Count 3.78 M/mm3 (4.2-5.4); White Blood Count 14.8 K/mm3 (4.4-11.0)
[2020-08-13] MEDS: Acetaminophen 500 MG Tablet 1000 MG PO ×3 (06:06→18:02)
--- NOTE | 2020-08-13 09:31 | PCM.PN.OB ---
Subjective: Patient without complaints except for some diarrhea. Minimal vaginal bleeding reported. Tolerating diet well. Objective: Mepilex dressing is clean and dry. Good urine output. Hemoglobin okay. - Physical Exam Vitals/I&O's: Vital Signs Temp Pulse Resp BP Pulse Ox 97 F L 106 H 18 102/68 95 08/13/20 08:28 08/13/20 08:28 08/13/20 08:28 08/13/20 08:28 08/13/20 08:02 Oxygen Delivery Method Room Air Weight: 308 lb 6.827 oz Body Mass Index (BMI) 48.3 Intake and Output for Last 24 Hours 08/11/20 08/12/20 08/13/20 23:59 23:59 23:59 Intake Total 3854.17 / 3854.17 Output Total 1000 / 1000 Balance 2854.17 / 2854.17 Laboratory Results 08/13/20 04:12: WBC 14.8 H, RBC 3.78 L, Hgb 11.2 L, Hct 34.9 L, MCV 92.3, MCH 29.6, MCHC 32.1, RDW Std Deviation 45.1 H, RDW Coeff of [place] 13.5, Plt Count 213, MPV 10.6 Current Medications Acetaminophen (Acetaminophen 500 Mg Tablet) 1,000 mg PO Q6 [facility] Last Admin: 08/13/20 06:06 Dose: 1,000 mg Documented by: Bisacodyl (Bisacodyl 10 Mg Suppository) 10 mg RC UD PRN PRN Reason: If no BM Enoxaparin Sodium (Enoxaparin 40 Mg/0.4 Ml Syringe) 40 mg SC DAILY@1999 [facility] Last Admin: 08/12/20 20:10 Dose: 40 mg Documented by: Fluoxetine HCl (Fluoxetine 20 Mg Capsule) 20 mg PO DAILY [facility] Last Admin: 08/12/20 14:01 Dose: 20 mg Documented by: Hydrocortisone (Hydrocortisone 2.5% Crm) 1 applic TOPICAL TID PRN PRN; Protocol PRN Reason: Discomfort Ibuprofen (Ibuprofen 600 Mg Tablet) 600 mg PO Q6H [facility] Methylergonovine Maleate (Methylergonovine 0.2 Mg/Ml Ampul) 0.2 mg IM X1 PRN PRN Reason: Uterine Atony Naloxone HCl (Naloxone 0.4 Mg/Ml Syringe) 0.02 mg IV Q1M PRN PRN Reason: RR <10 and pt unresponsive Ondansetron HCl (Ondansetron 4 Mg/2 Ml Vial) 4 mg IV Q4H PRN PRN PRN Reason: Nausea Oxycodone HCl (Oxycodone 5 Mg Tablet) 5 - 10 mg PO Q4H PRN PRN PRN Reason: Pain Score 4-10 Prochlorperazine Edisylate (Prochlorperazine 10 Mg/2 Ml Vial) 10 mg IV Q6H PRN PRN PRN Reason: NAUSEA Senna/Docusate Sodium (Senna/Docusate Sodium 1 Tablet) 0 tablet PO DAILY [facility] Last Admin: 08/13/20 07:39 Dose: Not Given Documented by: Simethicone (Simethicone 80 Mg Tablet) 80 mg PO PCHS PRN PRN Reason: Indigestion/stomach pain Last Admin: 08/12/20 23:43 Dose: 80 mg Documented by: Sodium Chloride (0.9% Saline Lock 10 Ml Syringe) 5 - 15 ml IV UD PRN PRN Reason: SALINE FLUSH Last Admin: 08/13/20 04:07 Dose: 10 ml Documented by: Medical Necessity - Tobacco Use Smoking Status: Light Smoker (<10/day) Assessment/Plan Doing well post operative day #1 status post repeat . Some diarrhea so we will check stool for C. difficile. Continuing present care.
[2020-08-13] MEDS: Ibuprofen 600 MG Tablet PO ×3 (10:14→21:29)
[2020-08-13] MEDS: FLUoxetine 20 MG Capsule PO (10:14)
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
[2020-08-13] MEDS: Famotidine 20 MG Tablet PO (18:02)
[2020-08-13] MEDS: Enoxaparin 40 MG/0.4 ML Syringe SC (21:05)
[2020-08-14] MEDS: Acetaminophen 500 MG Tablet 1000 MG PO ×3 (00:37→13:10)
[2020-08-14 01:49] VITALS: BP 115/71; PULSE 89; RESP 18; TEMP 35.9; O2SAT 98
[2020-08-14] MEDS: Ibuprofen 600 MG Tablet PO ×2 (03:31→09:47)
--- NOTE | 2020-08-14 06:11 | PN.OBGYN_ITS ---
Subjective: No overnight complaints. Pain well controlled. - Physical Exam Vitals/I&O's: Vital Signs Temp Pulse Resp BP Pulse Ox 96.6 F L 89 18 115/71 98 08/14/20 01:49 08/14/20 01:49 08/14/20 01:49 08/14/20 01:49 08/14/20 01:49 Oxygen Delivery Method Room Air Weight: 308 lb 6.827 oz Body Mass Index (BMI) 48.3 Intake and Output for Last 24 Hours 08/12/20 08/13/20 08/14/20 23:59 23:59 23:59 Intake Total 3854.17 / 3854.17 Output Total 1000 / 1000 Balance 2854.17 / 2854.17 General: Alert, Oriented x3, Cooperative, No apparent distress HEENT: Atraumatic, Normocephalic Oral: Moist Mucosa Neck: Supple Abdomen: Soft, Non Tender Extremities: No clubbing, No cyanosis, No edema Neurological: Neuro grossly intact Psych/Mental Status: Normal Affect, Appropriate, Alert and oriented to time, place, person, mood and affect Microbiology Past 72 Hours 08/13/20 10:10 Stool C. difficile DNA Amplification - Final Current Medications Acetaminophen (Acetaminophen 500 Mg Tablet) 1,000 mg PO Q6 [facility] Last Admin: 08/14/20 00:37 Dose: 1,000 mg Documented by: Bisacodyl (Bisacodyl 10 Mg Suppository) 10 mg RC UD PRN PRN Reason: If no BM Enoxaparin Sodium (Enoxaparin 40 Mg/0.4 Ml Syringe) 40 mg SC DAILY@1999 [facility] Last Admin: 08/13/20 21:05 Dose: 40 mg Documented by: Famotidine (Famotidine 20 Mg Tablet) 20 mg PO BID [facility] Last Admin: 08/13/20 18:02 Dose: 20 mg Documented by: Fluoxetine HCl (Fluoxetine 20 Mg Capsule) 20 mg PO DAILY [facility] Last Admin: 08/13/20 10:14 Dose: 20 mg Documented by: Hydrocortisone (Hydrocortisone 2.5% Crm) 1 applic TOPICAL TID PRN PRN; Protocol PRN Reason: Discomfort Ibuprofen (Ibuprofen 600 Mg Tablet) 600 mg PO Q6H [facility] Last Admin: 08/14/20 03:31 Dose: 600 mg Documented by: Methylergonovine Maleate (Methylergonovine 0.2 Mg/Ml Ampul) 0.2 mg IM X1 PRN PRN Reason: Uterine Atony Naloxone HCl (Naloxone 0.4 Mg/Ml Syringe) 0.02 mg IV Q1M PRN PRN Reason: RR <10 and pt unresponsive Ondansetron HCl (Ondansetron 4 Mg/2 Ml Vial) 4 mg IV Q4H PRN PRN PRN Reason: Nausea Oxycodone HCl (Oxycodone 5 Mg Tablet) 5 - 10 mg PO Q4H PRN PRN PRN Reason: Pain Score 4-10 Prochlorperazine Edisylate (Prochlorperazine 10 Mg/2 Ml Vial) 10 mg IV Q6H PRN PRN PRN Reason: NAUSEA Senna/Docusate Sodium (Senna/Docusate Sodium 1 Tablet) 0 tablet PO DAILY [facility] Last Admin: 08/13/20 07:39 Dose: Not Given Documented by: Simethicone (Simethicone 80 Mg Tablet) 80 mg PO PCHS PRN PRN Reason: Indigestion/stomach pain Last Admin: 08/12/20 23:43 Dose: 80 mg Documented by: Sodium Chloride (0.9% Saline Lock 10 Ml Syringe) 5 - 15 ml IV UD PRN PRN Reason: SALINE FLUSH Last Admin: 08/13/20 15:46 Dose: 10 ml Documented by: Medical Necessity - Tobacco Use Smoking Status: Light Smoker (<10/day) Assessment/Plan Postop day 2. Pain well controlled. Diarrhea improving, C. difficile negative. We will continue p.o. hydration and Imodium as needed. Okay to discharge home today
--- NOTE | 2020-08-14 06:14 | NURSING ---
This RN in room medicating pt. Pt asked this RN to re-swaddle . Mother states I don't feel like it but I think he feels better when he is. FOB at bedside and states to MOB that he thinks infant may be hungry. RN encouraged mother to feed infant again.
[2020-08-14 09:00] VITALS: BP 124/50; PULSE 86; RESP 18; TEMP 36.3; O2SAT 97
[2020-08-14] MEDS: FLUoxetine 20 MG Capsule PO (09:47)
[2020-08-14] MEDS: Famotidine 20 MG Tablet PO (09:47)
--- NOTE | 2020-08-14 12:30 | CASEMGMT ---
Addendum entered and electronically signed by Brittany Travis 08/17/20 13:18: Faxed H&P and discharge instructions to Shelbie at [facility], to confirmed fax, for continuity of care of this patient. shea. Original Note: Social Work Labor and Delivery Medical records reviewed and nursing documentation noted. Spoke with nursing today who reports MOB has been engaged with baby and changed a diaper today. Called [facility] to see about getting MOB some follow up. MOB had been anticipating would need to start over due to the amount of months without attending any appointments. This production underwriter learned that MOB still an active client so transferred to Shelbie, a nurse for Dr. Jeffries. Spoke with Shelbie who asks information be faxed to [facility] for continuity of care. Shelbie in need to speak with MOB to update health history and the MOB will be referred to a new psychiatric provider, as Dr. Jeffries is leaving the agency. Confirmed fax number as [phone]. Presented to MOB's room, to speak to again before the FOB's arrival. MOB up and moving around the room when this production underwriter entered, at baby's bedside crib, waiting on some wipes to change baby's diaper. MOB reports to feel better today as was able to get some rest yesterday during the day. MOB reports the FOB helped out with the baby, and this was helpful. MOB confirms plan to go to MOB's mom's home at discharge, so will have access to help for a couple fo weeks. This production underwriter addressed again and safety issues with FOB. MOB denies any safety concerns with the FOB. Updated MOB to conversation with Shelbie at [facility]. MOB signed release of information to [facility] and verbalized agreement to have information faxed. While this production underwriter in the room, encouraged MOB to call Shelbie. MOB did so immediately. MOB put phone on speaker and this production underwriter heard conversation with Shelbie. MOB able to get follow up appointment with new provider, Wai Barragan, for 09-03-2020 at 1400. Provided MOB with resource information for [facility], as well as information and resources for depression and anxiety. MOB in agreement with restarting back on medications, and voiced desire to have a prescription for Prozac at discharge, especially since restarted while in the hospital. JOSUÉ also agrees to [facility] referral. No other services requested or indicated at this time. JOSUÉ showing insight into need to care for her own emotional health and has taken steps to get back into outpatient care. Also agrees to support services in the community from [facility]. JOSUÉ reports to feel support from her mother will be adequate for the next couple fo weeks. Spoke with TEO Fitzpatrick about prescription for Prozac and follow up not until 09-03-2020. RN will talk with physician about prescription for home going. -MARY Watkins, CANCER CENTER DIRECTOR
[2020-08-14 13:20] VITALS: BP 112/70; PULSE 92; RESP 18; TEMP 36.3
--- NOTE | 2020-08-14 14:53 | NURSING ---
1445 placed in car seat per parents; dc to home
--- NOTE | 2020-08-17 13:16 | CASEMGMT ---
Social Work Labor and Delivery unit [facility] referral submitted through the [facility] assisted care web-based referral system. [] No other services requested or indicated. -MARY Watkins, CAR PARKER. *Information documented in this note generated via [employer] system*
== END 2020-08-14 14:45 | disposition home or self-care (01) | DRG 540 ==
PROVIDERS: Admitting Provider Obstetrics & Gynecology; Referring Provider Obstetrics & Gynecology; Visit Provider Obstetrics & Gynecology
PROC: 10D00Z1 Extraction of Products of Conception, Low, Open Approach (ICD-10-PCS; CPT 59514; principal; 2020-08-12 07:15)
DX: O34.211 Maternal care for low transverse scar from previous cesarean delivery (principal); Z37.0 Single live birth; O99.334 Smoking (tobacco) complicating childbirth; Z3A.39 39 weeks gestation of pregnancy; F31.9 Bipolar disorder, unspecified; O99.344 Other mental disorders complicating childbirth; F41.9 Anxiety disorder, unspecified; O99.214 Obesity complicating childbirth; E66.9 Obesity, unspecified; F17.200 Nicotine dependence, unspecified, uncomplicated
CPT/HCPCS: 85025; 85027; 86850; 86900; 86901; 87493; 99218; 99251; J7120; A4216; G0378; G0463; J2405

== ENCOUNTER → 2020-09-25 15:32 | Outpatient (CLI) | payer MEDICAID, SELFPAY ==
[2020-08-12 05:30] VITALS: BMI 48.3
[2020-09-30 16:24] LABS: HPV Reflexed? NOT INDICATED
== END ==
PROVIDERS: Visit Provider Obstetrics & Gynecology
DX: Z12.4 Encounter for screening for malignant neoplasm of cervix (principal)
CPT/HCPCS: 88175; G0145

== ENCOUNTER → 2021-10-11 | Outpatient (CLI) | payer MEDICAID, SELFPAY ==
[2021-10-14 00:07] LABS: Chlamydia By Nucleic Acid AMP Negative (Negative)
[2021-10-14 16:33] LABS: Gonococcus By Nucleic Acid AMP Negative (Negative)
[2021-10-15 16:19] LABS: HPV Reflexed? NOT INDICATED
== END | disposition home or self-care (01) ==
LOC: LABSPEC 14:14
PROVIDERS: Visit Provider Obstetrics & Gynecology
DX: Z12.4 Encounter for screening for malignant neoplasm of cervix (principal); Z11.3 Encounter for screening for infections with a predominantly sexual mode of transmission
CPT/HCPCS: 87491; 87591; 88175; G0145

== ENCOUNTER → 2024-07-25 | Outpatient (CLI) | payer MEDICAID, SELFPAY ==
[2024-07-30 12:45] LABS: HPV Reflexed? NOT INDICATED
== END | disposition home or self-care (01) ==
LOC: LABSPEC 11:53
PROVIDERS: Referring Provider Nurse Practitioner Family; Visit Provider Nurse Practitioner Family
DX: Z12.4 Encounter for screening for malignant neoplasm of cervix (principal)
CPT/HCPCS: 88175; G0145